=== PATIENT | female | born 1955 ===

== ENCOUNTER 2020-03-03 08:29 | Outpatient (REF) | payer OTHER, SELFPAY ==
--- NOTE | 2020-03-03 16:01 | MHC.AU.P13 ---
Adult Audiological Evaluation Date of Visit: 03/03/20 Reason for Appointment: Audiological re-evaluation to monitor the status of Ms. Mondragon's hearing loss. She is interested in pursuing amplification. She denies any significant changes to her hearing or medical history since her last visit. Does patient feel they have a hearing loss?: Yes If Yes, Which Ear?: Both Ears Has hearing been tested previously?: Yes Previous Hearing Test Results: [facility] [place]28/[place]- Mild low-frequency hearing loss bilaterally, worse in the right ear. Hearing Handicap Inventory: HHIE SCORE: Based on HHIE score, patient has: Ear History: Previous Ear Surgery: Right Ear- bony growth removed in childhood Medical History: Medical History (Other): Hip replacement in 2010 Otoscopy: Right Ear: Non-occluding cerumen. Scarring of the TM Left Ear: Scarring of the TM. Clear canal. Tympanometry: Right Ear: Normal Middle Ear System (Type A) Left Ear: Normal Middle Ear System (Type A) Hearing Evaluation: Transducer(s) Used: Insert Earphones, Bone Conduction Method: Conventional Audiometry Stimuli Used: Pure Tones Right Ear: Description of Hearing: Mild sensorineural hearing loss from 250-1000 Hz, rising to normal hearing from 1652-7470 Hz. Left Ear: Description of Hearing: Mild sensorineural hearing loss from 250-500 Hz, rising to normal hearing from 750-8000 Hz. Speech Recognition Threshold (SRT): Method Used: Monitored Live Voice Stimuli Used: Spondee Words Right Ear: 25 dBHL Left Ear: 15 dBHL Word Discrimination: Method: Monitored Live Voice Word Lists Used: NU-6 Right Ear: 96% at 65 dBHL Left Ear: 100% at 55 dBHL QuickSIN: 0 dB SNR loss, presented binaurally at 70 dBHL. Indicates normal speech understanding abilities in the presence of background noise. Comparison: Compared to the most recent evaluation: Hearing is stable. Recommendations: Recommendations: Trial with amplification is recommended. Audiological re-evaluation in one year. Recommendations (Other): Set Ms. Mondragon up with a pair of trial hearing aids today. She will return in 3 weeks to discuss options further and decide whether she would like to pursue amplification. Diagnosis: Primary Diagnosis: H90.3 Bilateral Sensorineural Hearing Loss Services Performed: Services Performed: Comprehensive Audiological Evaluation (CPT 71565) Tympanometry (CPT 79524) Unlisted Otorhinolaryngological Service or Procedure (CPT 05408) Signature: Provider: Jorge Hurtado, CCC-A
--- NOTE | 2020-03-03 16:03 | MHC.AU.MED ---
Medical Clearance for Hearing Instrumentation Date: 03/03/20 Patient Name: Aleisha Mondragon Date of : 1955 Primary Care Provider: Referring Provider: Rhea Shook MD We have seen your patient on 03/03/20 and have determined that they are a candidate for amplification (See accompanying report). Specifically, they would benefit from: Hearing aid use in both ears There is a statute that addresses Medical Evaluation Requirements prior to fitting a patient with a hearing aid. According to [place] statute 265 CMR:6.03(1), (a) General. Except as provided in 265 CMR 6.03(1)(b), a fish cutter shall not sell a hearing aid unless the prospective user has presented to the fish cutter a written statement signed by a licensed physician that states that the patient's hearing loss has been medically evaluated and the patient may be considered a candidate for a hearing aid. The medical evaluation must have taken place within the preceding six months. Please note: Due to the [place] Statute referenced above, we cannot accept a signature other than that of a licensed physician. PUSHER OPERATOR and PA signatures cannot be accepted. I am in agreement with the above recommendation. There is no medical contraindication for hearing instrumentation. Physician Signature Date Physician Name (Printed)
== END 2020-03-03 08:30 | disposition home or self-care (01) ==
LOC: HO.SH 08:29
PROVIDERS: Visit Provider Internal Medicine
DX: Z46.1 Encounter for fitting and adjustment of hearing aid (principal); H90.3 Sensorineural hearing loss, bilateral
CPT/HCPCS: 92557; 92567; 92700

== ENCOUNTER 2020-03-21 11:26 | Outpatient (REF) | payer SELFPAY | END 2020-03-21 11:27 | disposition home or self-care (01) | LOC: HO.HAP 11:26 | PROVIDERS: Visit Provider Family Medicine | DX: Z13.89 Encounter for screening for other disorder (principal) ==